=== PATIENT | male | born 1945 | race African-American/Black ===

== ENCOUNTER 2023-12-11 18:59 | Emergency (ER) | payer MEDICARE, OTHER ==
[~2023-12-11] VITALS: Ht 177.8 cm; Wt 79.0 kg
[2023-12-11 19:01] VITALS: TEMP 98.7; O2SAT 99
[2023-12-11] MEDS ORDERED: KETOROLAC 60MG/2ML VIAL IM STA (19:18)
[2023-12-11] MEDS: ONDANSETRON 4MG ODT PO NR (19:18)
[2023-12-11] MEDS ORDERED: ONDANSETRON 4MG ODT PO STA (19:18)
[2023-12-11 19:23] LABS: BASOPHILS % 0.6 % (0.0-2.0); EOSINOPHILS % 0.2 % (0.0-5.0); HEMATOCRIT. 41.9 % (42.0-52.0); HEMOGLOBIN. 14.1 g/dL (14.0-18.0); LYMPHOCYTES % 8.8 % (20.0-50.0); MEAN CORPUSCULAR HEMOGLOBIN 28.4 pg (28.0-32.0); MEAN CORPUSCULAR HGB CONC 33.5 g/dL (31.0-37.0); MEAN CORPUSCULAR VOLUME 84.8 fL (80.0-94.0); MEAN PLATELET VOLUME 9.2 fl (7.4-10.4); MONOCYTES % 1.9 % (2.0-8.0); NEUTROPHILS % 88.5 % (40.0-76.0); PLATELET 170 x1000/uL (130-400); RED BLOOD CELL COUNT 4.95 mill/uL (4.7-6.1); RED CELL DISTRIBUTION WIDTH 14.9 % (11.6-14.6); WHITE BLOOD COUNT 11.5 x1000/uL (4.5-11.0)
[2023-12-11] MEDS ORDERED: DOCUSATE SODIUM 100MG CAPSULE PO ONE (19:30)
[2023-12-11 19:31] LABS: CHLORIDE 104 mEq/L (98-107); POTASSIUM 4.1 mEq/L (3.5-5.1); SODIUM 135 mEq/L (136-145)
[2023-12-11 19:32] LABS: CARBON DIOXIDE 24 mEq/L (21-32)
[2023-12-11 19:33] LABS: CALCIUM 8.8 mg/dL (8.7-10.4)
[2023-12-11 19:37] LABS: CREATININE 1.2 mg/dL (0.6-1.3); GLUCOSE 128 mg/dL (70-105)
[2023-12-11 19:38] LABS: UREA NITROGEN BLOOD 14 mg/dL (9-23)
[2023-12-11 19:39] LABS: ALANINE AMINOTRANSFERASE 11 IU/L (10-49); ALBUMIN 4.5 g/dL (3.2-4.8); ASPARTATE AMINOTRANSFERASE 21 IU/L (<34)
[2023-12-11 19:40] LABS: BILIRUBIN TOTAL 0.5 mg/dL (0.1-1.0); PROTEIN TOTAL 7.9 g/dL (6.0-8.3)
[2023-12-11 21:31] LABS: CLARITY URINE CLEAR (CLEAR); COLOR URINE YELLOW (YELLOW); GLUCOSE URINE NEGATIVE (NEGATIVE); KETONES URINE TRACE (NEGATIVE); LEUKOCYTE ESTERASE URINE NEGATIVE (NEGATIVE); NITRITE URINE NEGATIVE (NEGATIVE); OCCULT BLOOD URINE NEGATIVE (NEGATIVE); PH URINE 7.5 (4.5-8.0); PROTEIN URINE 2+ (NEGATIVE); SPECIFIC GRAVITY URINE 1.013 (1.005-1.030); UROBILINOGEN URINE 0.2 E.U./dL (0.2-1.0)
[2023-12-11 21:46] LABS: BACTERIA URINE NONE SEEN; RBC URINE NONE SEEN /hpf (0-2); SQUAMOUS EPITHELIAL CELL URINE RARE /lpf (RARE/1+); WBC URINE NONE SEEN /hpf (0-2)
[2023-12-11] MEDS: KETOROLAC 60MG/2ML VIAL IM NR (21:51)
[2023-12-11] MEDS: POLYETHYLENE GLYCOL 3350 (17GM) 1 DOSE PACK PO ONE (21:54)
[2023-12-11] MEDS: DOCUSATE SODIUM 100MG CAPSULE PO NR (21:54)
[2023-12-11 21:57] VITALS: BP 140/71; PULSE 92; RESP 16
[2023-12-11] MEDS: SENNOSIDES/DOCUSATE SOD 8.6/50MG TABLET PO PRN (22:06)
[2023-12-11] MEDS ORDERED: SENN-257 MT (22:20)
[2023-12-11] MEDS ORDERED: IBUP-2029 MT (22:20)
[2023-12-11] MEDS ORDERED: DOCU-138 MT (22:20)
== END 2023-12-11 22:27 | disposition home or self-care (01) ==
LOC: ER 18:59
DX: K57.90 Diverticulosis of intestine, part unspecified, without perforation or abscess without bleeding (principal); K59.00 Constipation, unspecified; K40.90 Unilateral inguinal hernia, without obstruction or gangrene, not specified as recurrent; I48.91 Unspecified atrial fibrillation; I10 Essential (primary) hypertension
CPT/HCPCS: 99284; 74176; 80053; 81003; 83690; 85025; 36415; Q0162; J1885